=== PATIENT | female | born 1975 | race Caucasian/White ===

== ENCOUNTER 2020-07-14 13:34 | Emergency (ER) | payer OTHER, SELFPAY ==
[2020-07-14 14:20] VITALS: BP 131/69; PULSE 81; RESP 14; TEMP 36.7; O2SAT 99; BMI 15.6
--- NOTE | 2020-07-14 14:24 | XR_ITS ---
PROCEDURE: XR FOOT LT MIN 3V CLINICAL INDICATION: FALL COMPARISON: No exams were available for comparison FINDINGS: There is an oblique somewhat spiral type fracture distal shaft 5th metatarsal. Remaining metatarsals in all of phalanges appear intact. The tarsal bones appear normal. The plantar arch is normal. IMPRESSION: Fracture distal shaft 5th metatarsal Dictated by: Dr. Que Gunter MD 07/14/2020 14:48 Dr. Que Gunter MD in [place] 07/14/2020 14:48
--- NOTE | 2020-07-14 14:34 | HMH.EDUTC ---
[facility] Disposition Clinical Impression: Foot fracture, left Qualifiers: Encounter type: initial encounter Fracture type: closed Qualified Code(s): S92.902A - Unspecified fracture of left foot, initial encounter for closed fracture Disposition: Home, Self-Care Condition on Discharge: Good Instructions: Foot Fracture, DI for Foot Fracture Additional Instructions: Rest the extremity, apply ice for 15 minutes as tolerated three or four times per day, Elevate the extremity as tolerated while you are resting. Take ibuprofen for pain. Follow up with Dr. Bush (quality assurance specialist). I put in a referral but you need to call his office and schedule an appointment. Follow up with your regular doctor. GO TO THE ER FOR ANY WORSENING SYMPTOMS Referrals: Popeye Sanabria MD [Primary Care Provider] - Time of Disposition: 15:45 Medical Decision Making - Medical Records Medical records reviewed: No: I reviewed the patient's medical records. - Petey Inquiry Pt receiving controlled substance: No Vital Signs: 07/14/20 14:20 07/14/20 15:34 Temperature 98.1 F 98.1 F Temperature Source Oral Pulse Rate 81 Pulse Rate [Right Brachial] 81 Respiratory Rate 14 14 Blood Pressure 131/69 Blood Pressure [Right Arm] 131/69 Blood Pressure Mean [Right Arm] 89 Blood Pressure Source [Right Arm] Automatic Cuff Blood Pressure Position [Right Arm] Sitting 02 Sat by Pulse Oximetry 99 Oxygen Delivery Method Room Air - Radiology Data #1 Image(s): Foot/Toes Image Reviewed: Yes I reviewed the patient's radiology image, Yes I have reviewed radiologist's interpretation Preliminary Findings: Abnormal PROCEDURE: XR FOOT LT MIN 3V CLINICAL INDICATION: FALL COMPARISON: No exams were available for comparison FINDINGS: There is an oblique somewhat spiral type fracture distal shaft 5th metatarsal. Remaining metatarsals in all of phalanges appear intact. The tarsal bones appear normal. The plantar arch is normal. IMPRESSION: Fracture distal shaft 5th metatarsal Dictated by: Dr. Que Gunter MD 07/14/2020 14:48 Dr. Que Gunter MD in [place] 07/14/2020 14:48 [facility] HPI - General Stated complaint: ao 1127 1300 injury to L foot Time Seen by Provider: 07/14/20 15:00 - History of Present Illness Provider Complaint: She states that she was pulled down by her dog last night. When she fell she twisted her left foot under her. Since then she has had left foot pain and swelling. - Related Data Allergies Allergy/AdvReac Type Severity Reaction Status Date / Time acetaminophen [ACETAMINOPHEN] Allergy Mild Verified 07/14/20 14:43 codeine [CODEINE] Allergy Mild Verified 07/14/20 14:43 morphine [MORPHINE] Allergy Mild Verified 07/14/20 14:43 oxycodone [OXYCODONE] Allergy Mild Verified 07/14/20 14:43 aspirin Allergy Verified 07/14/20 14:43 [facility] History - Hepatitis A Screen Attestation statement:: This patient has been screened for Hepatitis A risk factors. I have reviewed the patient's past medical history: Yes ROS Obtained: Yes All systems reviewed & no additional complaints - Constitutional Constitutional: Denies chills, Denies fever(s) - Musculoskeletal Musculoskeletal: Reports as per HPI - Integumentary/Breasts Skin/Breast: Denies redness, Denies rash, Denies wounds Physical Exam - General General appearance: alert, in no apparent distress - Head Head exam: atraumatic, normocephalic, normal inspection - Eye Eye exam: Present: normal appearance, PERRL, EOMI - ENT ENT exam: Present: normal exam, normal oropharynx, mucous membranes moist, TM's normal bilaterally, normal external ear exam - Neck Neck exam: Present: normal inspection, full ROM, trachea midline. Absent: meningismus, lymphadenopathy - Chest Chest inspection: Present: normal inspection, symmetric chest wall rise. Absent: tenderness - Respiratory Respiratory exam: Present: normal lung sounds bilat
[2020-07-14 15:34] VITALS: BP 131/69; PULSE 81; RESP 14; TEMP 36.7; O2SAT 99
== END 2020-07-14 15:35 | disposition home or self-care (01) ==
PROVIDERS: Emergency Provider Nurse Practitioner Family; PCP Family Medicine
DX: S92.355A Nondisplaced fracture of fifth metatarsal bone, left foot, initial encounter for closed fracture (principal); X50.1XXA Overexertion from prolonged static or awkward postures, initial encounter; Y93.K1 Activity, walking an animal; Y92.89 Other specified places as the place of occurrence of the external cause; Z88.5 Allergy status to narcotic agent
CPT/HCPCS: 29515; 73630; 99202

== ENCOUNTER → 2020-07-18 09:12 | Outpatient (CLI) | payer OTHER, SELFPAY ==
--- NOTE | 2020-07-18 | XR_ITS ---
PROCEDURE: XR TIBIA FIBULA LT 2V CLINICAL INDICATION: Pain COMPARISON: No exams were available for comparison FINDINGS: No fracture or dislocation. No lytic or blastic change. There is normal mineralization. The joint spaces are well-preserved. No significant degenerative/arthritic changes. No erosive changes evident. Other findings:None. IMPRESSION: No acute findings. Dictated by: Gregg Carroll MD 07/18/2020 17:48 Gregg Carroll MD in [place] 07/18/2020 17:48
--- NOTE | 2020-07-18 | XR_ITS ---
PROCEDURE: XR ANKLE LT MIN 3V CLINICAL INDICATION: Pain COMPARISON: CR ANKL3 ANKLE-LT-3 VIEWS from 06/13/2013 CR ANKL3 ANKLE-LT-3 VIEWS from 06/24/2013 FINDINGS: No fracture or dislocation. No lytic or blastic change. There is normal mineralization. The joint spaces are well-preserved. No significant degenerative/arthritic changes. No erosive changes evident. Other findings:There is artifact from overlying wrap IMPRESSION: No acute findings. Dictated by: Gregg Carroll MD 07/18/2020 17:49 Gregg Carroll MD in [place] 07/18/2020 17:49
--- NOTE | 2020-07-18 09:23 | XR_ITS ---
PROCEDURE: XR CHEST 2V CLINICAL HISTORY: TOBACCO USE,ALLERGIES Cysts 6 COMPARISON: CR CXR CHEST(2 VIEWS-NOT PORTABLE) from 12/15/2016 CR TSP THORACIC SPINE-3V SWIMMERS from 12/15/2016 FINDINGS: The cardiomediastinal silhouette and pulmonary vascularity are within normal limits. There is hyperinflation suggesting COPD. Patchy density is present in the left lung base laterally overlying the 7th rib and could be due to patchy area of infiltrate or even developing nodule. Follow-up suggested to confirm resolution. There is a linear area of faint increased density in the right upper lung zone laterally possibly due to artifact. Follow-up also suggested a this density. There is calcified granuloma in the left lower lobe No acute bony abnormalities. IMPRESSION: Patchy infiltrate in the left lung base. COPD Dictated by: Gregg Carroll MD 07/18/2020 17:47 Gregg Carroll MD in [place] 07/18/2020 17:47
--- NOTE | 2020-07-18 10:18 | ECG_ITS ---
APPROVED REPORT Exam: Resting ECG HR:91 bpm ECG Measurements Heart Rate 91 AXES MA 136 P 86 QRSd 80 QRS 90 QT 338 T 59 QTc 415 Conclusion Normal sinus rhythm Right atrial enlargement Rightward axis Pulmonary disease pattern Nonspecific ST abnormality Abnormal ECG Electronically signed by : Fritz Bergman, 07/18/2020 19:04:44
[2020-07-18 10:42] LABS: Basophils # 0.1 K/mm3 (0-0.2); Basophils % 1.4 % (0.1-2.0); Eosinophils # 0.2 K/mm3 (0.0-0.4); Eosinophils % 1.9 % (0.1-12.0); Hematocrit 51.3 % (37.0-47.0); Hemoglobin 17.2 g/dL (12.2-16.2); Lymphocytes % 36.5 % (10-50); Mean Corpuscular HGB Conc 33.5 g/dL (31.8-35.4); Mean Corpuscular Hemoglobin 31.2 pg (27.0-31.2); Mean Corpuscular Volume 93.3 fl (81-99); Mean Platelet Volume 11.1 fl (7.4-10.4); Monocytes # 0.4 K/mm3 (0.1-1.0); Monocytes % 4.7 % (1.7-9.3); Neutrophils # 4.6 K/mm3 (1.8-7.8); Neutrophils % 55.4 % (37.0-80.0); Platelet Count 368 K/mm3 (142-424); Red Cell Distribution Width 12.4 % (11.5-17.5); White Blood Count 8.2 K/mm3 (4.8-10.8)
[2020-07-18 11:21] LABS: Chloride 102 mmol/L (98-107); Potassium 4.2 mmoL/L (3.5-5.1); Sodium 142 mmol/L (136-145)
[2020-07-18 11:23] LABS: Alanine Aminotransferase 10 U/L (12-78); Alkaline Phosphatase 112 U/L (38-126); Aspartate Amino Transferase 33 U/L (14-36); Bilirubin,Total 0.6 mg/dl (0.2-1.3); Blood Urea Nitrogen 13 mg/dl (7-17); Estimated Glomerular Filt Rate 61 ml/min (>60); GFR (African American) 74 ML/MIN (>60)
[2020-07-18 11:24] LABS: Albumin Level 5.3 g/dl (3.5-5.0); Albumin/Globulin Ratio 1.4 (1.1-1.8); Anion Gap 13.2 mEq/L (5-15); Calcium 10.7 mg/dl (8.4-10.2); Carbon Dioxide 31 mmol/L (22.0-30.0); Globulin 3.9 g/dL (1.3-3.2); Glucose 91 mg/dl (74-100); Total Protein,Serum 9.2 g/dl (6.3-8.2)
[2020-07-18 11:55] LABS: 25-OH Vitamin D, Total 34.2 ng/mL (30-100)
[2020-07-18 12:44] LABS: Coronavirus 19 IgG Antibody Negative (Negative); Coronavirus 19 IgM Antibody Negative (Negative)
== END ==
PROVIDERS: PCP Family Medicine; Visit Provider Podiatrist
DX: Z01.818 Encounter for other preprocedural examination (principal); S92.352A Displaced fracture of fifth metatarsal bone, left foot, initial encounter for closed fracture
CPT/HCPCS: 36415; 71046; 73590; 73610; 80053; 82306; 85025; 86328; 93005

== ENCOUNTER → 2020-07-25 10:36 | Outpatient (CLI) | payer OTHER, SELFPAY ==
--- NOTE | 2020-07-25 10:41 | CT_ITS ---
PROCEDURE: CT CHEST W CON CLINCAL INDICATION: ABN CXR Follow-up abnormal chest x-ray, COPD, smoker COMPARISON: CR CXR CHEST(2 VIEWS-NOT PORTABLE) from 12/15/2016 CR XR CHEST 2V from 07/18/2020 TECHNIQUE: IV Contrast: 75ml Isovue 370 Axial images obtained with sagittal and coronal reformats. All CT scans at the facility use one or more dose reduction, viz: automated exposure control, ma/kV adjustment per patient size (including targeted exams where dose is matched to indication, i.e. head), or iterative reconstruction technique. FINDINGS: HEART AND MEDIASTINAL STRUCTURES: No mediastinal or hilar adenopathy or mediastinal mass evident LUNGS AND PLEURAL SPACES: COPD with centrilobular emphysema. There a 4 mm nodule within the right lower lobe posteriorly nonspecific image 52 series 3. There is a cavitating lesion in the left lung base anteriorly and laterally within the left lower lobe. This measures 19 by 15 mm and abuts the hemidiaphragm in the left lateral chest wall. The wall of the cavity is mostly thin with some thickening of the wall laterally. This could be infectious, post inflammatory, or neoplastic. This does correspond to the radiographic abnormality. A calcified granuloma is present in the left lower lobe. No pleural effusions. BONY STRUCTURES: No acute bony abnormalities apparent. UPPER ABDOMEN: There are at least 2 areas of decreased cortical enhancement of the right kidney 1 in the upper pole medially and 1 in the upper pole posteriorly. There is some coarse calcification within the upper pole posteriorly in the area of decreased attenuation. These could represent renal infarcts/scarring. Pyelonephritis is also consideration. Neoplasm is not completely excluded. ADDITIONAL FINDINGS: No other significant abnormalities. IMPRESSION: 1. There is a cavitating lesion in the left lower lobe peripherally this could represent an infectious or neoplastic process or even postinflammatory scarring. PET CT may provide further evaluation. A 4 mm nodule is present in the right lower lobe. 2. COPD with centrilobular emphysema in the lung apices. 3. At least 2 areas of decreased cortical enhancement of the right kidney which could be due to scarring, infarction, pyelonephritis, or even neoplasm. The kidney is incompletely image. Follow-up CT with renal protocol without and with contrast or MRI of the kidneys may provide further evaluation. There is some calcification noted within the upper pole posteriorly Dictated by: Gregg Carroll MD 07/26/2020 06:50 Gregg Carroll MD in [place] 07/26/2020 06:50
== END ==
PROVIDERS: PCP Family Medicine; Visit Provider Family Medicine
DX: R93.89 Abnormal findings on diagnostic imaging of other specified body structures (principal)
CPT/HCPCS: 71260; Q9967

== ENCOUNTER → 2020-07-27 13:41 | Outpatient (CLI) | payer OTHER, SELFPAY ==
[2020-07-27 15:26] LABS: Coronavirus 19 IgG Antibody Negative (Negative); Coronavirus 19 IgM Antibody Negative (Negative)
== END ==
PROVIDERS: Visit Provider Podiatrist
DX: S92.902A Unspecified fracture of left foot, initial encounter for closed fracture (principal); Z01.812 Encounter for preprocedural laboratory examination
CPT/HCPCS: 36415; 86328

== ENCOUNTER 2020-07-28 08:57 | Day surgery (SDC) | payer OTHER, SELFPAY ==
[2020-07-28] VITALS (10 sets, daily range): BP systolic 97–124; BP diastolic 62–71; PULSE 68–84; RESP 16–20; TEMP 36.6–43; O2SAT 92–98; BMI 16.4
--- NOTE | 2020-07-28 10:53 | HMH.OPNOTE ---
Date of procedure: 07/28/20 Pre-op Diagnosis:: 1. Left 5th metatarsal displaced fracture 2. Left ATFL tear 3. Left ankle instability 4. Left peroneal tenosynovitis Post-op Diagnosis:: Same Procedure performed:: 1. Left 5th metatarsal ORIF 2. Left modified Brostrum repair 3. Left peroneal tendon debridement/tenosynovectomy 4. Left application of graft, BMA 5. Left application of posterior splint Surgeon:: Clarice Bush DPM BATCH AND FURNACE OPERATOR:: Hardik Dowd Anesthesia: GETA, regional (Left popliteal block) Estimated blood loss (mL): 15 Clinical Note:: Patient is a 44-year-old female who twisted the left foot. Left foot x-rays 3 views taken 07/14/20 evaluated. Report noted. FINDINGS: There is an oblique somewhat spiral type fracture distal shaft 5th metatarsal. Remaining metatarsals in all of phalanges appear intact. The tarsal bones appear normal. The plantar arch is normal. IMPRESSION: Fracture distal shaft 5th metatarsal. X-rays reviewed and discussed with the patient. Conservative treatment discussed but not recommended. DOI: 07/14/20. We discussed surgery. I explained to the patient she has a fracture with peroneal pathology. I also explained the ankle instability likely resulted in acute on chronic ankle sprain instability situation. We discussed doing an ankle arthrotomy to directly visualize and repair ligaments as needed. All risks and benefits were discussed including but not limited to: damage to blood vessels and nerves, bleeding, infection, wound complications, delayed, mal or non-union of bone, post-traumatic arthritis, need for further surgery, need for removal of implant, prolonged swelling of the extremity, prolonged pain, CRPS/RSD, DVT, and anesthetic complications. We discussed tobacco usage and DVT ppx. She is lower risk, discussed signs and symptoms of DVT/PE. Will monitor post op. No guarantees were given. All questions fully answered. The patient verbalized understanding and agreed to proceed with surgery. Consent was obtained. Necessary labs and pre-op testing ordered: CBC, BMP, vitamin D, EKG, CXR, covid. X-rays left ankle and tib-fib to evaluate fibula pain and rule out distal and proximal fracture. Pt was given a Rx for Oxycodone #30 (patient reports allergy is itching, but with Benadryl). e-Rx Phenergan, Motrin and vitamin D. Patient has a fracture boot. Patient has crutches, but is struggling and has fallen with them. Patient also reports wrist and back pain with crutches. She got the rolling knee scooter. NWB to LLE for fracture, post op x 6-8 weeks. Rx given for Toradol x5 days and Zofran. Operative findings:: Left fifth metatarsal fracture comminuted and displaced with shortening and rotation. There is a spiral oblique fracture. Several fragments of bone noted. There was positive anterior ankle drawer with a tear of the ATFL. Peroneal tendon had no obvious tear but synovitis noted. Operative note:: On this date and time patient was deemed an appropriate surgical candidate. A pre-operative popliteal regional nerve block was given by anesthesia. With informed consent signed, the patient was taken to the operating theater. The patient was positioned supine. General anesthesia was induced. Tourniquet was applied to the left mid-calf @225mmHg. The left lower extremity was prepped and draped in normal sterile fashion. Left 5th Metatarsal ORIF, Ignite bone marrow aspirate, graft: Attention was directed to the dorsal foot, where intra-op fluoroscopy was used to map out the 5th metatarsal on both the AP, MO and lateral views. A 15' blade was used to make an incision extending from the 5th metatarsal phalangeal joint to the 5th metatarsal shaft. Blunt dissection was utilized to dissect thru subcutaneous tissue with care taken to maintain surgical hemostasis and safely retract neurovascular structures. A mixture of sharp and blunt dissection technique was then used to carry dissection down through the deep fascia with care taken to safely retract
--- NOTE | 2020-07-28 11:45 | HMH.ANESCL ---
[facility] Anesthesia Checklist - Patient Identification Patient Identification: Arm Band - Structural Data Admitted From: Home Planned Operative Procedure/s: ORIF Left 5th Metatarsal Consent for Planned Operative Procedure(s) Verified: Yes Verified Documents: Surgical Consent, History and Physical - NPO Status Verified Time NPO: 00:00 - Additional verifications Anesthesia Reactions: No Hx Blood Transfusions: No Blood Transfusion Reaction: No - Airway Assessment C-Spine Mobility Assessed: Yes (mp1) TMJ Mobility Assessed: Yes Dentition: Poor Dentition - Neurological Assessment Level of Consciousness: Awake, Alert - Anesthesia Plan Anesthesia Risk discussed: Yes Anesthesia Plan: Verified ASA Class: III Anesthesia Type: General w/block (Risks benefits of Popliteal/saphenous nerve block explained. Pt verbalizes understanding) [facility] History I have reviewed the patient's past medical history: Yes Medical History: Reports:: Anxiety, Cancer (uterine) Denies:: Diabetes Mellitus Type 1, Diabetes Mellitus Type 2, Internal Pacemaker, MRSA, Seizures *Have you ever received a pneumonia vaccine?: No *Have you received a flu vaccine this season?: No Other Medical History: Denies: Blood Transfusion Reaction Anesthesia experience/problems:: nac Other Surgeries: Yes: , Hysterectomy-Total. No: Pacemaker Amputation: No Fractures: Yes - *Social History Last grade of school completed: 9th or 10th Smoking Status: Current every day smoker Tobacco Type: cigarettes # Packs/Day (cigarettes): 1 Alcohol Intake: never Substance Use Type: marijuana *Occupational Status:: disabled Housing: house Household Members: spouse *Travel in the last 8 weeks: None - Psychiatric History Pschychiatric History:: Reports:: Anxiety Family Hx:: Unable to obtain
--- NOTE | 2020-07-28 12:30 | XR_ITS ---
PROCEDURE: XR FOOT LT 2V CLINICAL INDICATION: FX 5TH MT COMPARISON: CR XR FOOT LT MIN 3V from 07/14/2020 CR XR FOOT LT MIN 3V from 07/28/2020 FINDINGS: Fluoroscopy time: 43 seconds. Status post bone plate placement along the lateral aspect of the 5th metatarsal fracture which is in good alignment. There is a cast in place. IMPRESSION: Status post ORIF 5th metatarsal Dictated by: Gregg Carroll MD 07/28/2020 17:04 Gregg Carroll MD in [place] 07/28/2020 17:04
--- NOTE | 2020-07-28 13:25 | P.PN_ITS ---
[facility] Anesthesia Record Part I Intake, IV Amount: 1,200 Estimated blood loss (mL): 10 Urine output (mL): 0 Blood Pressure: 98/62 SaO2: 92 Pulse Rate: 79 Respiratory Rate: 16 Temperature: 98.5 F Patient is:: Drowsy, Stable Stable to PACU at:: 13:20
--- NOTE | 2020-07-28 16:31 | SUR.PHASEI ---
1340- radiology @ bs taking xrays. Pt very cooperative. Able to move left leg without difficulty or signs of pain. 1345-pt states that her left leg feels numb and reports no pain.
== END 2020-07-28 14:15 | disposition home or self-care (01) ==
LOC: OR 08:59
PROVIDERS: PCP Family Medicine; Visit Provider Podiatrist
PROC: (CPT 28485; principal; 2020-07-28 10:35)
DX: S92.352A Displaced fracture of fifth metatarsal bone, left foot, initial encounter for closed fracture (principal); M65.862 Other synovitis and tenosynovitis, left lower leg; S93.432A Sprain of tibiofibular ligament of left ankle, initial encounter; F41.9 Anxiety disorder, unspecified; F17.210 Nicotine dependence, cigarettes, uncomplicated; Z90.710 Acquired absence of both cervix and uterus; Z88.6 Allergy status to analgesic agent; Z88.5 Allergy status to narcotic agent; W18.39XA Other fall on same level, initial encounter; Y93.K1 Activity, walking an animal; Z85.42 Personal history of malignant neoplasm of other parts of uterus
CPT/HCPCS: 28485; 27626; 27829; 64450; 73620; 73630; 96374; C1713; C1776; J2405; Q4211

== ENCOUNTER → 2020-09-01 13:31 | Outpatient (CLI) | payer OTHER, SELFPAY ==
--- NOTE | 2020-09-01 13:43 | XR_ITS ---
PROCEDURE: XR FOOT WT BEARING LT 3V CLINICAL INDICATION: foot pain COMPARISON: CR XR FOOT LT MIN 3V from 07/14/2020 CR XR FOOT LT MIN 3V from 07/28/2020 CR XR FOOT LT 2V from 07/28/2020 FINDINGS: Status post ORIF with a lateral bone plate placed at the distal and mid aspect of the 5th metatarsal with good alignment. There is diffuse osteopenia of the distal aspect of the 5th metatarsal and at the 5th toe. Mild diffuse osteopenia foot. Fracture fragments are in good alignment. IMPRESSION: Good alignment status post ORIF 5th metatarsal with diffuse osteopenia Dictated by: Gregg Carroll MD 09/01/2020 14:54 Gregg Carroll MD in [place] 09/01/2020 14:54
--- NOTE | 2020-09-01 13:43 | XR_ITS ---
PROCEDURE: XR ANKLE WT BEARING LT MIN 3V CLINICAL INDICATION: ankle pain Fall with injury and pain COMPARISON: CR ANKL3 ANKLE-LT-3 VIEWS from 06/13/2013 CR ANKL3 ANKLE-LT-3 VIEWS from 06/24/2013 CR XR ANKLE LT MIN 3V from 07/18/2020 CR XR FOOT LT 2V from 07/28/2020 FINDINGS: An anchor screw has been placed at the lateral malleolar region. There is mild diffuse osteopenia. No acute fracture or dislocation. IMPRESSION: Dimock screw placed at the lateral malleolar region otherwise negative Dictated by: Gregg Carroll MD 09/01/2020 14:52 Gregg Carroll MD in [place] 09/01/2020 14:52
== END ==
PROVIDERS: PCP Family Medicine; Visit Provider Orthopaedic Surgery
DX: M25.572 Pain in left ankle and joints of left foot (principal); S92.902A Unspecified fracture of left foot, initial encounter for closed fracture; Z98.890 Other specified postprocedural states
CPT/HCPCS: 73610; 73630

== ENCOUNTER → 2020-09-25 13:50 | Outpatient (CLI) | payer OTHER, SELFPAY ==
--- NOTE | 2020-09-25 13:55 | XR_ITS ---
PROCEDURE: XR FOOT WT BEARING LT 3V CLINICAL INDICATION: post-op follow-up surgery COMPARISON: CR XR FOOT LT MIN 3V from 07/14/2020 CR XR FOOT LT MIN 3V from 07/28/2020 CR XR FOOT LT 2V from 07/28/2020 CR XR FOOT WT BEARING LT 3V from 09/01/2020 FINDINGS: A cast has been placed. There is diffuse osteopenia of the foot. A lateral bone plate is present at the 5th metatarsal. The bony elements are very poorly delineated due to the overlying cast and osteopenia. There appears to be good alignment however the fracture line is not adequately evaluated. Preston screws present at the lateral malleolar region. IMPRESSION: Diffuse osteopenia status post cast placement and lateral bone plate placement at the 5th metatarsal and an anchor screw at the lateral malleolus Dictated by: Gregg Carroll MD 09/25/2020 16:24 Gregg Carroll MD in [place] 09/25/2020 16:24
== END ==
PROVIDERS: PCP Family Medicine; Visit Provider Podiatrist
DX: S92.355D Nondisplaced fracture of fifth metatarsal bone, left foot, subsequent encounter for fracture with routine healing (principal); Z98.890 Other specified postprocedural states
CPT/HCPCS: 73630

== ENCOUNTER → 2021-11-19 11:41 | Outpatient (CLI) | payer OTHER, SELFPAY | PROVIDERS: Visit Provider Family Medicine | DX: Z20.822 Contact with and (suspected) exposure to COVID-19 (principal) | CPT/HCPCS: 36415 ==

== ENCOUNTER → 2021-11-21 15:34 | Outpatient (CLI) | payer OTHER, SELFPAY ==
[2021-11-21 16:53] LABS: Coronavirus 19, PCR Not Detected (NotDetected); Influenza A, PCR Not Detected (NotDetected); Influenza B, PCR Not Detected (NotDetected)
== END ==
PROVIDERS: PCP Physician Assistant; Visit Provider Physician Assistant
DX: Z20.822 Contact with and (suspected) exposure to COVID-19 (principal)
CPT/HCPCS: C9803; U0003; U0005

== ENCOUNTER → 2022-12-25 14:17 | Outpatient (CLI) | payer OTHER, SELFPAY ==
--- NOTE | 2022-12-25 14:24 | CT_ITS ---
FINAL REPORT TECHNIQUE: Axial images of the chest was performed with and without contrast. Sagittal and coronal reformatted images were obtained and reviewed. This study was performed with techniques to keep radiation doses as low as reasonably achievable (ALARA). Individualized dose reduction techniques using automated exposure control or adjustment of mA and/or kV according to the patient's size were employed. CLINICAL HISTORY: LESION OF LUNG COMPARISON: 07/25/2020 FINDINGS: The left lower lobe lesion has resolved since previous. There is evidence of old granulomatous disease. There is a faint 3-4 mm right lower lobe nodule which is stable. Note is made of mild emphysema. There is no pleural or pericardial effusion. Limited images of the upper abdomen reveals upper pole right renal scarring. IMPRESSION: Resolution of previously identified left lower lobe lesion. No acute or suspicious findings. Reviewed, Interpreted and Dictated by Carie Mayberry MD Transcribed by Rosio Cao Authenticated and [facility]
== END ==
PROVIDERS: PCP Family Medicine; Visit Provider Family Medicine
DX: R91.1 Solitary pulmonary nodule (principal)
CPT/HCPCS: 71270; 93306; Q9967

== ENCOUNTER 2024-02-04 08:39 | Day surgery (SDC) | payer OTHER, SELFPAY ==
[2024-02-02 13:50] VITALS: BMI 18.6
[2024-02-04] VITALS (8 sets, daily range): BP systolic 95–139; BP diastolic 48–83; PULSE 64–79; RESP 16–18; TEMP 36.1–36.6; O2SAT 95–99
--- NOTE | 2024-02-04 08:53 | ECG_ITS ---
APPROVED REPORT Exam: Resting ECG HR:55 bpm ECG Measurements Heart Rate 55 AXES GA 169 P 68 QRSd 84 QRS 76 QT 418 T 54 QTc 407 Conclusion SINUS BRADYCARDIA WITH SINUS ARRHYTHMIA O/W Normal ECG UNCONFIRMED REPORT Electronically signed by : Fritz Bergman MD 02/06/2024 10:29:41
--- NOTE | 2024-02-04 09:28 | EXP.ANES.CKL ---
[facility] Disclaimer: The information contained in this section may have been updated after the patient was seen, as this information can be updated by other users. Medical History Heart murmur Jaw cyst Surgical History History of dental surgery History of foot surgery History of hysterectomy History of section Family History (Updated 02/02/24 @ 13:57 by Macey Nunez RN) Other No significant family history Social History (Updated 02/02/24 @ 13:57 by Macey Nunez RN) Smoking Status: Current every day smoker tobacco type: cigarettes packs per day: 1 alcohol intake: never substance use type: marijuana current occupational status: disabled Travel in the last 8 weeks: None household members: spouse housing: house current occupational exposures/hazards: No caffeine: Yes [facility] Anesthesia Checklist Patient Identification Patient Identification: Arm Band Structural Data Admitted From: Home Planned Operative Procedure/s: Excision of Left Facial Cyst, Right Post Auricular Cyst Consent for Planned Operative Procedure(s) Verified: Yes Verified Documents: Surgical Consent and History and Physical NPO Status Verified Time NPO: 00:00 Additional verifications Anesthesia Reactions: No Hx Blood Transfusions: No Blood Transfusion Reaction: No Airway Assessment Mallampati Score:: Class II C-Spine Mobility Assessed: Yes TMJ Mobility Assessed: Yes Dentition: Edentulous Neurological Assessment Level of Consciousness: Awake and Alert Anesthesia Plan Anesthesia Risk discussed: Yes Anesthesia Plan: Verified ASA Class: II Anesthesia Type: General
[2024-02-04 09:29] LABS: Basophils # 0.1 K/mm3 (0-0.2); Basophils % 1.7 % (0.1-2.0); Eosinophils # 0.3 K/mm3 (0.0-0.4); Eosinophils % 3.5 % (0.1-12.0); Hemoglobin 13.5 g/dL (12.2-16.2); Lymphocytes # 3.5 K/mm3 (0.7-4.5); Mean Corpuscular Hemoglobin 31.6 pg (27.0-31.2); Mean Corpuscular Volume 95.9 fl (81-99); Mean Platelet Volume 9.6 fl (7.4-10.4); Monocytes # 0.4 K/mm3 (0.1-1.0); Neutrophils # 3.5 K/mm3 (1.8-7.8); Neutrophils % 44.9 % (37.0-80.0); Platelet Count 259 K/mm3 (142-424); Red Blood Count 4.28 M/mm3 (4.20-5.40); White Blood Count 7.8 K/mm3 (4.8-10.8)
[2024-02-04 09:34] LABS: Chloride 106 mmol/L (98-107); Potassium 3.7 mmoL/L (3.5-5.1); Sodium 142 mmol/L (136-145)
[2024-02-04 09:37] LABS: Anion Gap 9.7 mEq/L (5-15); Blood Urea Nitrogen 10 mg/dl (7-17); Carbon Dioxide 30 mmol/L (22.0-30.0); Creatinine Clearance Estimated 58 mL/min (50-200); Estimated Glomerular Filt Rate 60 ml/min (>60); GFR (African American) 72 ML/MIN (>60)
[2024-02-04 09:38] LABS: Calcium 9.1 mg/dl (8.4-10.2); Glucose 89 mg/dl (74-100)
--- NOTE | 2024-02-04 09:43 | SUR.PREOP ---
Patient refused to remove rings and bra. Andreia Prather, CHANNEL WORKER, and myself all explained the risk of not removing metal or jewelry for the procedure. She states she understands the risk and does not care .
[2024-02-04] MEDS: LIDOCAINE 1% W/EPI 1:100,000 20ML VIAL 20 ML (10:10)
[2024-02-04] MEDS: CEFAZOLIN SODIUM 1 GM in 0.9 % SODIUM CHLORIDE 50 ML IV (10:28)
--- NOTE | 2024-02-04 10:33 | EXP.OP.NOTE ---
Date of procedure: 02/04/24 Pre-op Diagnosis:: left facial cyst right post auricular pit Post-op Diagnosis:: same Procedure performed:: excision left facial cyst, right post auricular cyst Surgeon:: Wu Dodge MD TANKAGE GRINDER OPERATOR:: Hardik Dowd Anesthesia: LMA Estimated blood loss (mL): 1 Operative findings:: left facial cyst consistent with epidermoid right post auricular pit Operative note:: Patient was brought to the room in a supine position and anesthesia with an LMA was induced. Patient was prepped and draped in usual fashion. She had what felt to be consistent with an epidermoid in the left facial area over top the angle of the mandible. Lidocaine with epinephrine 1 100,000 was injected over this area. A small incision was made directly over top the cyst. There did indeed appear to be an epidermoid sitting right in the subcutaneous tissue. The cyst in its entirety along with its capsule were bluntly dissected out from the surrounding tissue and then sent for permanent pathology. The wound was irrigated out and then closed in 2 layers. Separately, she has an intermittently draining right postauricular pit. Lidocaine with epinephrine 1 100,000 was injected around this lesion. A small elliptical incision was made to excise the pit and its underlying tract. It was sent for permanent pathology. The wound was then irrigated out and then closed with Monocryl suture. Condition: stable Disposition: PACU Complications:: none
--- NOTE | 2024-02-04 10:37 | P.PNANES_ITS ---
[facility] Anesthesia Record Part I Anesthesia Record I Intake, IV Amount: 500 Hydration: Adequate Estimated blood loss (mL): 5 Urine output (mL): 0 Blood Products used (#): none Blood Pressure: 95/57 SaO2: 99 Pulse Rate: 64 Airway Patency: Patent Respiratory Rate: 16 Temperature: 97 F Patient is:: Drowsy and Stable Stable to PACU at:: 10:30
[2024-02-04] MEDS: NEOMYCIN-POLYMYXIN-BACIT OINT 15GM TUBE 14.1999999999999993 GM TP (11:04)
--- NOTE | 2024-02-04 11:09 | SUR.PHASEII ---
During discharge instructions, pt was told about s/s of infection and the need to apply abx ointment on the areas. Pt responds I don't fucking care, if it rots off, it rots off. I'm ready to This RN did reiterate the importance of keeping area clean, pt ignored this RN and did not respond, but pt's family member did verbalize understanding.
--- NOTE | 2024-02-04 11:36 | SUR.PREOP ---
[id number]- during preoperative assessment with this [employer], patient verbalized she was wearing a bra and her underwear. When providing education to the patient that sparks are possible due to the use of the bovie machine during her operation, she replied with i do not care, i will not be taking off my bra and underwear. I understand the risks . Kyung Dowd CRNA and Dr Dodge both notified and aware.
--- NOTE | 2024-02-05 08:30 | EXP.ANES.II ---
[facility] Anesthesia Record Part II Anesthesia Record Part II Discharge Time: 11:00 Destination: [facility] Day Care (OP Surgery) PACU nurse assessment reviewed?: Yes Patient Condition:: Good Anesthesia Complications:: None Swallowing reflex intact?: Yes Airway Patency: Patent Cyanosis?: No Blood Pressure: 118/76 SaO2: 98 Respiratory Rate: 18 Pulse Rate: 66 Temperature: 97.9 F Mental Status: Alert & Oriented Pain level:: 0 Nausea and/or vomitting:: None Intake, IV Amount: 0 Hydration: Adequate
[2024-02-05 08:32] VITALS: BP 118/76; PULSE 66; RESP 18; TEMP 36.6; O2SAT 98
== END 2024-02-04 11:16 | disposition home or self-care (01) ==
PROVIDERS: Nurse Practitioner; PCP Family Medicine; Visit Provider Student in an Organized Health Care Education/Training Program
PROC: (CPT 11440; principal; 2024-02-04 10:30)
DX: L72.0 Epidermal cyst (principal); R00.1 Bradycardia, unspecified; I49.8 Other specified cardiac arrhythmias; H70.811 Postauricular fistula, right ear
CPT/HCPCS: 11440; 80048; 85025; 93005; 96374; J1100; J2250; J2405; J3010